=== PATIENT | male | born 1940 | race Caucasian/White ===

== ENCOUNTER → 2022-02-26 09:40 | Outpatient (CLI) | payer MEDICARE, SELFPAY ==
--- NOTE | 2022-03-04 09:39 | PM.PFT.1 ---
Pulmonary Function Test Referral & Results Date Patient Seen: 02/26/22 Requesting provider: Lane Garcia Results: The spirometry demonstrates an FVC of 3.56 L which is 81% of predicted. The FEV1 was measured at 1.14 L which is 36% of predicted. The FEV1/FVC ratio was 32 which is 45% of predicted. Following the administration of bronchodilator there was a 12% improvement in FEV1 and a 70% improvement in FEF 25-75%. Lung volumes show an SVC of 3.51 L which is 75% of predicted. The diffusing capacity was measured at 22.96 which is 65% of predicted. No hemoglobin value was provided, so no correction for potential anemia could be made, if appropriate. The maximum voluntary ventilation was reduced Interpretation: This study demonstrates severe obstructive lung disease with FEV1 quite low. There is evidence of some benefit following bronchodilator particularly small airway flow as above based on improvement in FEF 25-75% There is a annt-ti-pacscgic reduction in lung volumes suggesting the presence of restrictive lung disease as well There is a [id number] reduction diffusing capacity suggesting element of disease at the capillary alveolar level Altogether this is consistent with a diagnosis of COPD Clinical correlation suggested
== END ==
PROVIDERS: PCP Student in an Organized Health Care Education/Training Program; Referring Provider Student in an Organized Health Care Education/Training Program; Visit Provider Student in an Organized Health Care Education/Training Program
DX: J44.9 Chronic obstructive pulmonary disease, unspecified (principal); R06.2 Wheezing
CPT/HCPCS: 94060; 94726; 94729

== ENCOUNTER → 2022-05-27 15:18 | Outpatient (CLI) | payer MEDICARE, SELFPAY ==
--- NOTE | 2022-05-28 11:50 | DI.NM.S_ITS ---
DATE OF SERVICE: PROCEDURE: Exercise stress test. INDICATIONS: Shortness of breath, paroxysmal AFib, hypertension. CARDIAC STRESS: The patient underwent exercise stress test under the supervision of an attending staff. He walked on Hugo protocol for 2 minutes and 45 seconds, achieved maximum heart rate of 176, which was 126% of target heart rate. Resting blood pressure 128/80 mmHg. Peak blood pressure 180/90 mmHg. Achieved 4.6 METS of workload. BOSTON positive 36%. The patient had shortness of breath. Baseline rhythm was sinus with right bundle branch block and frequent PACs. During exercise, patient continued to have frequent PACs as well as PVCs and at peak exercise had 17 beats run of wide QRS tachycardia which appeared to be polymorphic ventricular tachycardia and rate up to 300 beats per minute. The patient had some more nonsustained ventricular tachycardia. No sustained ventricular tachycardia seen. Test was discontinued. CONCLUSION: Very poor exercise tolerance with diminished exercise capacity with functional aerobic impairment positive 36% without any obvious ischemic electrocardiographic changes. However, the patient has 17 beats run of polymorphic ventricular tachycardia at peak exercise with rate up to 300 beats per minute. During exercise, patient had shortness of breath. No chest pain. No sustained ventricular tachycardia. No syncope. Normal blood pressure response. Hence, I will call this study an abnormal exercise stress test. The patient is 81 years old with pretest probability of coronary artery disease high. My midlevel, Daina, spoke to the patient after having discussion with me and advised him to go to the emergency room. However, patient refused. She is going to report the stress test finding to PCP, Dr. Garcia. We will recommend further cardiac evaluation with echocardiogram and repeating stress test with perfusion study as well as checking electrolytes, and if needed, left heart catheterization. David Alba - ELECTRONICS ENGINEERING MANAGER/timoteo/mt doc#: [id number]/job#: [id number] dd: 05/27/2022 17:12:00 dt: 05/27/2022 22:07:00 DICTATING MD/COPIES TO: Colt Raines MD; Lane Garcia MD COPIES MNE: JAVY;
== END ==
PROVIDERS: PCP Student in an Organized Health Care Education/Training Program; Referring Provider Student in an Organized Health Care Education/Training Program; Visit Provider Student in an Organized Health Care Education/Training Program
DX: R94.39 Abnormal result of other cardiovascular function study (principal); R06.09 Other forms of dyspnea; I48.0 Paroxysmal atrial fibrillation; R06.02 Shortness of breath; I10 Essential (primary) hypertension
CPT/HCPCS: 93017